=== PATIENT | female | born 1970 | race Caucasian/White ===

== ENCOUNTER 2017-07-30 21:54 | Emergency (ER) | payer SELFPAY ==
[2017-07-30 23:41] LABS: Bilirubin,Urine NEG (Negative); Blood,Urine NEG (Negative); Color,Urine Straw (Yellow); Mucus,Urine FEW /HPF; Protein,Urine <15 mg/dL mg/dL (Negative); Urobilinogen,Urine < 2.0 mg/dL (<2.0)
[2017-07-30 23:42] LABS: HCG Qualitative,Urine Negative (Negative)
--- NOTE | 2017-07-30 23:54 | XRay Report ---
FINAL REPORT PROCEDURE: XR CHEST ROUTINE 2V TECHNIQUE: PA and lateral chest radiographs were obtained. CPT 17470 HISTORY: cough COMPARISON: No prior studies are available for comparison. FINDINGS: Heart: Normal. Mediastinum/Vessels: Normal. Lungs/Pleural space: Normal. Bony thorax: No acute osseous abnormality. Other: IMPRESSION: Normal examination.
[2017-07-31] MEDS ORDERED: DECADRON IV ONE (09:29)
--- NOTE | 2017-07-31 09:50 | Emergency Department Report ---
- General Chief Complaint: Upper Respiratory Infection Stated Complaint: BRONCHITIS Time Seen by Provider: 07/31/17 09:28 Source: patient Mode of arrival: Ambulatory Limitations: No Limitations - History of Present Illness Initial Comments: 47-year-old female comes in for complaint of productive cough. Patient reports that she was treated for bronchitis about 20 days ago and she continues to have a productive cough of clear mucous. Patient reports that her throat hurts when she coughs in her chest hurts at times when she coughs. Patient denies any fever no nausea no vomiting mild headache from coughing. She was treated with Keflex Bromfed and ibuprofen. He says no other past medical history currently takes no other medications besides what she was given for for her recent bronchitis. MD Complaint: cough - Related Data Previous Rx's Medication Instructions Recorded Last Taken Type ALBUTEROL Inhaler [ProAir HFA 2 puff IH QID PRN #1 inhalation 07/31/17 Unknown Rx Inhaler] Allergies Allergy/AdvReac Type Severity Reaction Status Date / Time No Known Allergies Allergy Unverified 07/30/17 23:16 ED Review of Systems ROS: Stated complaint: BRONCHITIS Other details as noted in HPI Constitutional: denies: chills, fever Eyes: denies: eye pain, eye discharge, vision change ENT: throat pain Respiratory: cough Cardiovascular: denies: chest pain, palpitations Endocrine: no symptoms reported Gastrointestinal: denies: abdominal pain, nausea, diarrhea Genitourinary: denies: urgency, dysuria, discharge Musculoskeletal: denies: back pain, joint swelling, arthralgia Skin: denies: rash, lesions Neurological: denies: headache, weakness, paresthesias Psychiatric: denies: anxiety, depression Hematological/Lymphatic: denies: easy bleeding, easy bruising ED Past Medical Hx - Past Medical History Previous Medical History?: No - Surgical History Past Surgical History?: No - Social History Smoking Status: Never Smoker Substance Use Type: None - Medications Home Medications: Home Medications Medication Instructions Recorded Confirmed Last Taken Type ALBUTEROL Inhaler [ProAir HFA 2 puff IH QID PRN #1 inhalation 07/31/17 Unknown Rx Inhaler] ED Physical Exam - General Limitations: No Limitations General appearance: alert, in no apparent distress - Head Head exam: Present: atraumatic, normocephalic - Eye Eye exam: Present: normal appearance - ENT ENT exam: Present: normal orophraynx (not erythematous), mucous membranes moist - Neck Neck exam: Present: normal inspection - Respiratory Respiratory exam: Present: normal lung sounds bilaterally, other (actively coughing with breathing in and out). Absent: respiratory distress - Cardiovascular Cardiovascular Exam: Present: regular rate, normal rhythm. Absent: systolic murmur, diastolic murmur, rubs, gallop - GI/Abdominal GI/Abdominal exam: Present: soft, normal bowel sounds - Extremities Exam Extremities exam: Present: normal inspection - Neurological Exam Neurological exam: Present: alert, oriented X3 - Psychiatric Psychiatric exam: Present: normal affect, normal mood - Skin Skin exam: Present: warm, dry, intact, normal color. Absent: rash ED Course Vital Signs 07/30/17 22:42 Temperature 97.9 F Pulse Rate 72 Respiratory 18 Rate Blood Pressure 109/73 O2 Sat by Pulse 97 Oximetry ED Medical Decision Making - Radiology Data Radiology results: report reviewed, image reviewed Normal exam - Medical Decision Making Patient has been evaluated by this provider fast track. I discussed with patient that her chest x-ray was negative. Also discussed the patient that we' ll give her a shot of steroids and a breathing treatment to help with her cough. Discussed the patient she has completed her antibiotics and therefore she does not need any more at this time. She can continue with the Bromfed as prescribed. And I will discharge her home on a albuterol inhaler. Patient verbalized understanding. Critical care attestation.: If time is entered above; I have spent that time in minutes in the direct care of this critically ill patient, excluding procedure time. ED Disposition Clinical Impression: Bronchitis Disposition: [id number] TO HOME OR SELFCARE Is pt being admited?: No Does the pt Need Aspirin: No Condition: Stable Instructions: Chronic Bronchitis (ED) Additional Instructions: Please see sugar inhaler every 4-6 hours as needed for cough and shortness of breath. Please continue with your Bromfed cough medication as prescribed. Please follow-up with your primary care provider if symptoms persist or gets worse. Prescriptions: ALBUTEROL Inhaler [ProAir HFA Inhaler] 2 puff IH QID PRN #1 inhalation PRN Reason: Shortness Of Breath Referrals: PRIMARY CARE, [Primary Care Provider] - 3-5 Days Forms: Accompanied Note, Work/School Release Form(ED)
[2017-07-31] MEDS: PROVENTIL IH ONE ×3 (10:14→10:37)
[2017-07-31 10:54] VITALS: BP 110/72
== END 2017-07-31 10:53 | disposition home or self-care (01) ==
LOC: ED 21:54
DX: J40 Bronchitis, not specified as acute or chronic (principal)
CPT/HCPCS: 71046; 81001; 81025; 94640; 96374; 99284; J1100